=== PATIENT | female | born 1945 | race Hispanic/Latino ===

== ENCOUNTER → 2017-09-15 | Outpatient (CLI) | payer OTHER ==
--- NOTE | 2017-09-19 18:12 | Diagnostic Imaging Report ---
#[id number] - MGSCRBIL #BILATERAL DIGITAL SCREENING MAMMOGRAM WITH CAD: 09/15/2017 CLINICAL: Routine screening. Comparison is made to exams dated: 08/23/2016 mammogram, 08/28/2015 mammogram and 08/24/2014 mammogram - [facility]. Current study contains 4 films. The tissue of both breasts is heterogeneously dense. This may lower the sensitivity of mammography. Current study was also evaluated with a Computer Aided Detection (CAD) system. There are benign calcifications in both breasts. There also are benign intramammary nodes in the left breast. There is a mole marker on the left breast. No significant masses, calcifications, or other findings are seen in either breast. There has been no significant interval change. IMPRESSION: BENIGN There is no mammographic evidence of malignancy. A 1 year screening mammogram is recommended. The patient will be notified by letter of the results. Jimmy stringer/wesly:09/18/2017 18:47:21 Clock Mechanic: Dorie MACKAY(R)(M), [facility] letter sent: Compared to Prior B9 Mammogram BI-RADS: 2 Benign
== END | disposition home or self-care (01) ==
LOC: MAMMO 13:11
PROVIDERS: ATTEND Obstetrics & Gynecology
DX: Z12.31 Encounter for screening mammogram for malignant neoplasm of breast (principal)
CPT/HCPCS: 77067

== ENCOUNTER → 2020-03-15 | Outpatient (CLI) | payer MEDICARE | LOC: MAMMO 12:47 | PROVIDERS: ATTEND Obstetrics & Gynecology | DX: Z12.31 Encounter for screening mammogram for malignant neoplasm of breast (principal) | CPT/HCPCS: 77067 ==

== ENCOUNTER → 2020-04-05 | Outpatient (CLI) | payer MEDICARE ==
--- NOTE | 2020-04-05 17:56 | Diagnostic Imaging Report ---
EXAM: Bone mineral density study 04/05/2020 12:00 PM INDICATION: Encounter for screening for osteoporosis COMPARISON: Previous DEXA 08/19/2013. Baseline DEXA 07/12/2010 FINDINGS: Evaluation of the left hip and lumbar spine was performed. The study is technically adequate. The patient's fracture risk is compared to an age-matched control. The patient denies prior surgery/fracture of the spine, hips or forearm. The left femoral neck bone mineral density is 0.7 gm/cm2, the T-score is -1.3 and the total Z-score is 0.6. The total left hip bone mineral density is 0.8 gm/cm2, the T-score is -1.1 and the total Z-score is 0.6. The total left hip BMD change versus baseline is -3.8% and the BMD change versus previous is -0.2% . The lumbar spine total bone mineral density is 0.9 gm/cm2, the T-score is -1.3, and the Z-score is 0.9. The lumbar spine BMD change versus baseline is 3.9% and the BMD change versus previous is 2.3%. IMPRESSION: 1. Bone mineralization by WHO Classification is osteopenia, the fracture risk is increased. 2. Compared to prior exam the bone mineral density has not significantly changed. 3. The FRAX 10-year probability of major osteoporotic fracture is 9.2% and hip fracture is 1.2%. These probabilities assume the patient is untreated. Signed by: Adalberto Dillon MD on 04/05/2020 5:53 PM
== END ==
LOC: DX 11:52
PROVIDERS: ATTEND Obstetrics & Gynecology
DX: Z13.820 Encounter for screening for osteoporosis (principal)
CPT/HCPCS: 77080

== ENCOUNTER → 2021-12-10 | Outpatient (CLI) | payer MEDICARE | LOC: MAMMO 09:31 | PROVIDERS: ATTEND Family Medicine | DX: Z12.31 Encounter for screening mammogram for malignant neoplasm of breast (principal); M85.88 Other specified disorders of bone density and structure, other site | CPT/HCPCS: 77067; 77080 ==

== ENCOUNTER → 2022-12-12 | Outpatient (CLI) | payer MEDICARE | LOC: DX 12:44 | PROVIDERS: ATTEND Family Medicine | DX: Z12.31 Encounter for screening mammogram for malignant neoplasm of breast (principal); M85.88 Other specified disorders of bone density and structure, other site | CPT/HCPCS: 77067; 77080 ==